=== PATIENT | male | born 1950 | race Caucasian/White ===

== ENCOUNTER 2018-06-01 06:53 | Day surgery (SDC) | payer OTHER, MEDICARE ==
[~2018-06-01] VITALS: Ht 177.8 cm; Wt 115.2 kg
[~2018-06-01 06:53] MED LIST: ALDACTONE25 MG PO; FISH OIL 1,0001 CA1 PO; GEMFIBROZIL600 MG PO; HYDROCODONE-APA1 TAB PO; METFORMIN HCL500 M1 PO; METOLAZONE2.5 MG PO; MULTIPLE VITAMI1 TA1 PO; NORMODYNE / TR100 MG PO; PEPCID AC20 MG PO; POTASSIUM CHLO20 MEQ PO; ZOCOR40 MG PO; ZYLOPRIM300 MG PO
[2018-06-01 07:10] LABS: HEMATOCRIT 37.5 % (42.0-54.0); HEMOGLOBIN 13.4 g/dL (13.5-17.5); LYMPHOCYTES 25.9 % (15-50); MCH 34.7 pg (26.0-34.0); MCHC 35.7 g/dL (31.0-37.0); MCV 97.2 fL (80.0-100.0); MEAN PLATELET VOLUME 10.2 fL (7.4-10.4); PLATELET COUNT 230 10x3/uL (130-400); RBC 3.86 10x6/uL (4.20-6.10); RDW 13.5 % (11.5-14.5); WBC 7.8 10x3/uL (4.8-10.8)
[2018-06-01 07:23] LABS: ALBUMIN 3.6 g/dL (3.4-5.0); ANION GAP 13.1 mmol/L (8-16); BILIRUBIN - TOTAL 0.68 mg/dL (0.2-1.3); CALCIUM 9.1 mg/dL (8.5-10.1); POTASSIUM - SERUM 3.1 mmol/L (3.5-5.1); PROTEIN - SERUM 7.7 g/dL (6.4-8.2)
[2018-06-01 08:01] VITALS: BP 133/86; Ht 177.8 cm; Wt 115.2 kg
--- NOTE | 2018-06-05 10:17 | OP ---
PATIENT NAME: MORELIA PLATA MEDICAL RECORD: [id number] :52 LOCATION:D[facility] ADMISSION DATE: SURGEON: ALEXI LAINEZ MD DATE OF OPERATION: 06/01/2018 PROCEDURE: EGD with biopsy and colonoscopy. REFERRING PHYSICIAN: Dr. Bc Kumar. COMMERCIAL SOLAR SALES CONSULTANT: Dr. Cara Campuzano ASSISTANT NEWS DIRECTOR: Dr. Ori Castellanos. INDICATIONS: Mr. Plata is a delightful 67-year-old gentleman with a history of anemia, abdominal pain, colon polyps, and a family history of colon cancer. His hemoglobin today is 13.4 with an MCV of 97.2. He presents for outpatient EGD and colonoscopy. PREMEDICATIONS: Total IV anesthesia (chronic renal insufficiency, coronary artery disease), propofol 420 mg. INSTRUMENT: Reactful video gastroscope and Reactful video colonoscope. PROCEDURE AND FINDINGS: After receiving informed consent, Mr. Plata's posterior pharynx was anesthetized with Cetacaine spray. He was placed in left lateral decubitus position and prepared for EGD. He was sedated per anesthesia. After achieving an adequate level of sedation, the gastroscope was introduced per orally and advanced into the duodenum without difficulty. The esophageal mucosa was without erythema, ulcers, strictures, masses, appeared normal down the GE junction. Small sliding type hiatal hernia was present. Gastric mucosa was notable for mild prepyloric and antral erythema and antral biopsies were obtained to rule out Helicobacter pylori. In the fundus was a 0.3 cm sessile polyp that was biopsied. There were no polyps or erythema noted in the mucosa of the body of the stomach. Pylorus was patent and competent. Duodenal mucosa was without erythema or ulcers and appeared normal through the second portion. Biopsies were taken from the second portion of the duodenum to rule out celiac disease. Gastroscope was then withdrawn. He was prepared for colonoscopy. Digital rectal exam was performed that showed no external hemorrhoidal tags, fissures, or fistulas. Normal sphincter tone, no palpable rectal masses. Colonoscope was introduced per rectally and advanced to the cecum without difficulty. The cecum, IC valve, and appendiceal orifice were identified and appeared normal. As the colonoscope was withdrawn, careful inspection was made of the mg of the colon. Overall mucosa had normal vascular and fold pattern. No polyps, masses, ulcers, or diverticula were noted. There was no blood seen in the colon. Retroflexion in the rectum showed mild internal hemorrhoids. A good prep was present. Withdrawal time was 6 minutes. Mr. Plata tolerated the procedure well, no immediate complications. ASSESSMENT: 1. Small sliding type hiatal hernia. 2. Mild gastritis. 3. Gastric fundal polyp. 4. Mild internal hemorrhoids. 5. Anemia, suspect a chronic renal insufficiency (creatinine is 2) contributing OPERATIVE REPORT [id number] THUANMORELIA to the mild anemia. 6. Family history of colon cancer. RECOMMENDATIONS: Follow up histopathology. Recommend surveillance colonoscopy in 5 years. TRANSINT:[id number] Voice Confirmation ID: [id number] DOCUMENT ID: [id number] ALEXI LAINEZ MD at 1017 CC: CARA CAMPUZANO FINCH, RICHARD R and ORI PARNELL MD [id number] DICTATION DATE: 06/01/18 0959 SHAREPOINT TRAINER: 06/01/18 1216 [facility] 06/01/18 [id number] [place] [address]
== END 2018-06-01 10:47 | disposition home or self-care (01) ==
LOC: D.OPS 06:53
PROVIDERS: ATTEND Internal Medicine Gastroenterology
DX: K44.9 Diaphragmatic hernia without obstruction or gangrene (principal); K29.70 Gastritis, unspecified, without bleeding; K29.80 Duodenitis without bleeding; K31.7 Polyp of stomach and duodenum; K64.8 Other hemorrhoids; D64.9 Anemia, unspecified; Z80.0 Family history of malignant neoplasm of digestive organs; Z86.010 Personal history of colon polyps; N18.9 Chronic kidney disease, unspecified; I25.10 Atherosclerotic heart disease of native coronary artery without angina pectoris; Z01.812 Encounter for preprocedural laboratory examination

== ENCOUNTER 2018-07-26 07:16 | Day surgery (SDC) | payer MEDICARE ==
[~2018-07-26] VITALS: Ht 177.8 cm; Wt 117.5 kg
[~2018-07-26 07:16] MED LIST changes: +BAYER CHEWABLE81 MG PO; +FUROSEMIDE40 MG PO; +GLUCOTROL XL 5 M5 MG PO; +NORVASC5 MG PO; +PIOGLITAZONE15 MG PO; +RYTHMOL 225 MG225 MG PO; +SINGULAIR10 MG PO
[2018-07-26 07:34] LABS: HEMATOCRIT 36.6 % (42.0-54.0); HEMOGLOBIN 12.4 g/dL (13.5-17.5); MCH 34.2 pg (26.0-34.0); MCHC 33.9 g/dL (31.0-37.0); MCV 100.8 fL (80.0-100.0); MEAN PLATELET VOLUME 10.9 fL (7.4-10.4); RBC 3.63 10x6/uL (4.20-6.10); RDW 13.7 % (11.5-14.5); WBC 8.4 10x3/uL (4.8-10.8)
[2018-07-26 07:43] LABS: CALCIUM 9.9 mg/dL (8.5-10.1); CARBON DIOXIDE 29.1 mmol/L (21.0-32.0); CREATININE - SERUM 2.1 mg/dL (0.6-1.3); POTASSIUM - SERUM 3.1 mmol/L (3.5-5.1)
[2018-07-26 08:22] VITALS: BP 117/18; Ht 177.8 cm; Wt 117.5 kg
[2018-07-26] MEDS ORDERED: PERCOCET 5-3251 TAB PO (10:07)
--- NOTE | 2018-07-27 10:09 | OP ---
PATIENT NAME: MORELIA LAROSE MEDICAL RECORD: [id number] :52 LOCATION:[facility] ADMISSION DATE: SURGEON: RANDAL SRINIVASAN MD DATE OF OPERATION: 07/26/2018 PREOPERATIVE DIAGNOSES: 1. Abdominal wall mass. 2. Hypertension. 3. Hypercholesterolemia. 4. Diabetes mellitus. 5. Gout. POSTOPERATIVE DIAGNOSES: 1. Abdominal wall mass. 2. Hypertension. 3. Hypercholesterolemia. 4. Diabetes mellitus. 5. Gout. PROCEDURE: Incision and debridement of abdominal wall mass. SURGEON: Randal Srinivasan MD REPORT OF PROCEDURE: The patient's abdomen was prepped and draped in sterile fashion. There is a firm mass in the upper midline that have extended out bilaterally. The midline incision was reopened using a 15-blade and we were able to penetrate this firm cavity. The external aspect of this cavity was firm like bone. Once we got inside, there was murky appearing fluid, but no sign of any purulence. We extended this opening until I could see inside of the pocket. What we actually found was that the pocket was under the rectus muscles and overlying the mesh. The mesh appeared to be densely attached to its lateral aspects in all directions, but was not attached in its middle portion. There was a lot of calcification in this pocket. Once we got all the fluid out of the way, then we started to try to remove as much of the calcifications possible. This was done with curette and blunt dissection. We were eventually able to get most of this calcification down until the tissue felt more normal. The mesh was never penetrated during this portion of the procedure and so we never actually entered the abdominal cavity. At no point were the bowels ever seen. Once we had everything as clean as possible in all directions, we irrigated out the wound with normal saline followed by peroxide and saline solution. The mesh appeared to be intact with no signs of any chronic inflammatory changes or any signs of infection. The overlying muscle tissue and fascia appeared to be viable and there was no sign of any bleeding. We then inserted a 15-Latvian fully-fluted Khoi drain through the left upper quadrant to where it rested in the pocket. This was sutured into place with a 2-0 Prolene. The midline fascia was then closed using a running 0 PDS times 2. We then reapproximated the subcutaneous tissues with interrupted 3-0 Vicryl and infused 10 mL of 0.25% Marcaine with epinephrine. The skin was closed with rocío and then dressed appropriately. COMPLICATIONS: None. CONDITION: Stable. ANESTHESIA: General endotracheal and local. OPERATIVE REPORT [id number] THUANMORELIA RAY BLOOD LOSS: 30 mL. TRANSINT:[id number] Voice Confirmation ID: [id number] DOCUMENT ID: [id number] RANDAL SRINIVASAN MD at 1009 CC: HARMAN BOLES [id number] DICTATION DATE: 07/26/18 1021 [facility] [employer]OLF COACH: 07/26/18 1442 [facility] 07/26/18 [facility] [address] [place] [id number]
== END 2018-07-26 12:45 | disposition home or self-care (01) ==
LOC: D.OPS 07:16 → D.PAN 11:35 → D.OPS 12:45 → D.PAN 12:45
PROVIDERS: Anesthesiology; ATTEND Surgery
DX: R22.2 Localized swelling, mass and lump, trunk (principal); I10 Essential (primary) hypertension; E78.00 Pure hypercholesterolemia, unspecified; E11.9 Type 2 diabetes mellitus without complications; M10.9 Gout, unspecified; Z01.812 Encounter for preprocedural laboratory examination

== ENCOUNTER → 2018-08-02 07:49 | Outpatient (CLI) | payer MEDICARE ==
[2018-07-26 08:22] VITALS: BMI 37.2
[~2018-08-02 07:49] MED LIST changes: +PERCOCET 5-3251 TAB PO
--- NOTE | 2018-08-06 15:03 | EC ---
PATIENT:MORELIA LAROSE DATE OF SERVICE: 08/02/18 SEX: M MEDICAL RECORD: [id number] DATE OF : 52 LOCATION:[facility] AGE OF PATIENT: 67 ADMISSION DATE: 08/02/18 REFERRING PHYSICIAN: INTERPRETING PHYSICIAN: MAIDA PARNELL MD ECHOCARDIOGRAM REPORT ECHO CHARGES 4 ECHO COMPLETE Date: 08/02/18 CLINICAL DIAGNOSIS: PVC'S H/O HTN ECHOCARDIOGRAPHIC MEASUREMENTS (adult normal given) AC root (d.<3.7cm) 3.0 cm LV Septum d (<1.2 cm> 1.0 cm Valve Excursion 1.3 cm LV Septum (systole) 1.5 cm Left Atria (s.<4.0cm> 2.7 cm LVPW d(<1.2cm) 1.0 cm RV (d.<2.3cm) 2.9 cm LVPW (sytole) 1.4 cm LV diastole(<5.6CM) 4.0 cm MV E-F(>70mm/sec) cm LV systole 2.9 cm LVOT Diameter 2.0 cm MV exc.(>10mm) cm Est.ejection fraction (50-75%) % DOPPLER: LVIT cm/sec A 60.0 cm/sec E 78.0 cm/sec LA cm/sec RVSP 14.2 mmHg LVOT 123 cm/sec AOP1/2T m/s Asc. Ao 126 cm/sec RVOT 61.0 cm/sec RA cm/sec PA 93.0 cm/sec AV Gradient Peak 6.4 mmHg AV Mean 3.5 mmHg AV Area 2.5 cm MV Gradient Peak 2.7 mmHg MV Mean 1.3 mmHg MV Area cm COMMENTS: OP - HC Reading Recovery Teacher: Aracelis KHANNA VELVET Ramp Jockey: 3 Dr. Castellanos TAPE# PACS Pericardial Effusion Y DATE OF SERVICE: 08/02/2018 Adequate 2-D echo, color-flow and spectral Doppler, and M-mode. No LVH. LV internal dimensions are normal. Wall motion is normal. EF is greater than or equal to 55%. Aortic valve is tricuspid. No evidence of stenosis by Doppler interrogation. Left atrium is normal at 3.7 cm. Mitral valve shows no prolapse. Trace MR. Right-sided chambers are normal. Trace TR. TRANSINT:[id number] Voice Confirmation ID: [id number] DOCUMENT ID: [id number] ECHOCARDIOGRAM REPORT [id number] MORELIA LAROSE,MAIDA Avitia MD at 1503 CC: [id number] DICTATION DATE: 08/06/18 1233 DATA ENTRY SPECIALIST: 08/06/18 1241 [facility] CLI 08/02/18 [place] [id number] [place] [id number]
== END | disposition home or self-care (01) ==
LOC: D.HCCARDIO 07:49
PROVIDERS: ATTEND Internal Medicine Interventional Cardiology
DX: I48.91 Unspecified atrial fibrillation (principal)

== ENCOUNTER → 2019-04-15 13:21 | Outpatient (CLI) | payer MEDICARE ==
[2018-07-26 08:22] VITALS: BMI 37.2
== END | disposition home or self-care (01) ==
LOC: D.MAMMO 13:21
PROVIDERS: ATTEND Family Medicine
DX: N63.20 Unspecified lump in the left breast, unspecified quadrant (principal)

== ENCOUNTER → 2019-07-31 08:39 | Outpatient (CLI) | payer MEDICARE ==
[2018-07-26 08:22] VITALS: BMI 37.2
--- NOTE | 2019-08-02 08:51 | EC ---
PATIENT:MORELIA LAROSE DATE OF SERVICE: 07/31/19 SEX: M MEDICAL RECORD: [id number] DATE OF : 52 LOCATION:[facility] AGE OF PATIENT: 68 ADMISSION DATE: 07/31/19 REFERRING PHYSICIAN: INTERPRETING PHYSICIAN: MAIDA PARNELL MD ECHOCARDIOGRAM REPORT ECHO CHARGES 4 ECHO COMPLETE Date: 07/31/19 CLINICAL DIAGNOSIS: HTN HX OF CAD/STENTS ECHOCARDIOGRAPHIC MEASUREMENTS (adult normal given) AC root (d.<3.7cm) 4.0 cm LV Septum d (<1.2 cm> 1.6 cm Valve Excursion 1.9 cm LV Septum (systole) 1.8 cm Left Atria (s.<4.0cm> 3.8 cm LVPW d(<1.2cm) 1.8 cm RV (d.<2.3cm) 3.4 cm LVPW (sytole) 2.0 cm LV diastole(<5.6CM) 4.7 cm MV E-F(>70mm/sec) cm LV systole 3.0 cm LVOT Diameter 2.2 cm MV exc.(>10mm) 1.7 cm Est.ejection fraction (50-75%) % DOPPLER: LVIT cm/sec A 77.0 cm/sec E 89.0 cm/sec LA cm/sec RVSP 14 mmHg LVOT 116 cm/sec AOP1/2T m/s Asc. Ao 128 cm/sec RVOT 67 cm/sec RA cm/sec PA 108 cm/sec AV Gradient Peak 6.52 mmHg AV Mean 3.24 mmHg AV Area 3.8 cm MV Gradient Peak 3.05 mmHg MV Mean 1.41 mmHg MV Area cm COMMENTS: Soldering Machine Operator Helper: 2 MARIAELENA BROWN Wallet Assembler: 3 Dr. Castellanos TAPE# PACS Pericardial Effusion N DATE OF SERVICE: Adequate 2D, color flow imaging, spectral Doppler, and M-Mode LVH is present. LV internal dimensions are normal. Wall motion is normal. EF is greater than or equal to 55%. Aortic valve is tricuspid. No evidence of stenosis by Doppler interrogation. Left atrium is normal. Mitral valve shows no prolapse. Trace MR. Right-sided chambers are grossly normal. Trace TR. TRANSINT:[id number] Voice Confirmation ID: [id number] DOCUMENT ID: [id number] ECHOCARDIOGRAM REPORT [id number] THUANMORELIA STEPHEN,MAIDA Avitia MD at 0851 CC: [id number] DICTATION DATE: 08/01/19 1427 STOCK ASSOCIATE: 08/01/19 1511 [facility] CLI 07/31/19 [facility] [address] [place] [address]
== END | disposition home or self-care (01) ==
LOC: D.HCCECHO 08:30
PROVIDERS: ATTEND Internal Medicine Interventional Cardiology
DX: I10 Essential (primary) hypertension (principal)